=== PATIENT | male | born 1970 | race Caucasian/White ===

== ENCOUNTER 2018-02-26 00:30 | Inpatient (IN) | payer OTHER ==
--- NOTE | 2018-02-26 00:47 | ED ---
Back Pain - HPI Summary HPI Summary: This patient is a 47 year old M brought in by EMS presenting to [facility] with a chief complaint of worsening back, leg, and groin pain since [place]. Patient is scheduled for surgery with Dr. Slater but states he is in severe pain. The patient has a Hx of back surgery when he fell of a roof 3-5 years ago. He is getting the future surgery for herniated discs L2, L3, L4, and L5. The patient complains of associated dysuria and constipation. - History of Current Complaint Stated Complaint: BACK PAIN Hx Obtained From: Patient Onset/Duration: Gradual Onset, Lasting Weeks, Still Present Onset/Duration: Started Weeks Ago Timing: Constant Back Pain Location: Is Discrete @ - Vertebrae L2, L3, L4, L5, Radiates To - Groin and left leg. Severity Initially: Severe Severity Currently: Severe Aggravating Symptom(s): Nothing Alleviating Symptom(s): Nothing - Allergies/Home Medications Allergies/Adverse Reactions: Allergies Allergy/AdvReac Type Severity Reaction Status Date / Time No Known Allergies Allergy Verified 02/20/18 10:11 PMH/Surg Hx/FS Hx/Imm Hx Endocrine/Hematology History: Denies: Hx Anticoagulant Therapy, Hx Blood Disorders, Hx Diabetes, Hx Unexplained Bleeding Cardiovascular History: Denies: Hx Congestive Heart Failure, Hx Hypertension - patient stated BP elevated d/t excruciating pain in back and leg, Hx Pacemaker/ICD GI History: Reports: Hx Jaundice - hx, Other GI Disorders - hepatomegaly, LFT's elevated History: Denies: Hx Renal Disease Musculoskeletal History: Reports: Hx Arthritis, Hx Back Problems - h/o lumbar laminectomy - ongoing pain w/ LLE radiculopathy Sensory History: Reports: Hx Contacts or Glasses - READING Denies: Hx Hearing Aid Opthamlomology History: Reports: Hx Contacts or Glasses - READING Psychiatric History: Reports: Hx Inpatient Treatment - drug and alcohol rehab, Hx Substance Abuse - daily ETOH consumption 4+ beers per day Denies: Hx Anxiety, Hx Attention Deficit Hyperactivity Disorder, Hx Eating Disorder, Hx Depression, Hx Panic Disorder, Hx Post Traumatic Stress Disorder, Hx Community Mental Health Tx, Hx Schizophrenia, Hx Bipolar Disorder, Hx Suicide Attempt, Hx of Violent Episodes Against Others, Other Psychiatric Issues /Disorders - Surgical History Surgery Procedure, Year, and Place: Lt KNEE, RT KNEE- ACL REPAIR. BACK SURGERY - LUMBAR Hx Anesthesia Reactions: No - Family History Known Family History: Negative: Cardiac Disease, Hypertension, Diabetes - Social History Alcohol Use: Daily Alcohol Amount: Patient states it depends (reports 4-10 in past) Hx Substance Use: No Substance Use Type: Reports: None Hx Tobacco Use: Yes Smoking Status (MU): Current Every Day Smoker Type: Cigarettes Amount Used/How Often: 1 ppd 30 years Length of Time of Smoking/Using Tobacco: most of life Have You Smoked in the Last Year: No Review of Systems Negative: Fever Positive: dysuria, other - constipation Positive: Other - Back pain in L2, L3, L4, L5, radiates to groin and left leg. All Other Systems Reviewed And Are Negative: Yes Physical Exam - Summary Physical Exam Summary: Appearance: Well-appearing, Well-nourished, lying in bed comfortable. Good sensation in the feet, symmetric. Eyes: sclera anicteric, no conjunctival pallor ENT: mucous membranes moist Neck: deferred Respiratory: No signs of respiratory distress Cardiovascular: Appears well perfused, pulses are nml Abdomen: deferred Musculoskeletal: Moving all 4 extremities without obvious discomfort. Good sensation in the feet, symmetric. Dorsi and plantar flexion in great toe is intact bilaterally. Neurological: Awake and alert, mentation is normal, speech is fluent and appropriate Psychiatric: affect is normal, does not appear anxious or depressed Triage Information Reviewed: Yes Vital Signs Reviewed: Yes Diagnostics - Laboratory Result Diagrams: 02/26/18 02:14 02/26/18 02:14 Lab Statement: Any lab studies that have been ordered have been reviewed, and results considered in the medical decision making process. Re-Evaluation - Re-Evaluation First Eval Re-Evaluation Time: 00:53 Change: Unchanged - Discussed pain treatment plan with patient. Back Pain Course/Dx - Course Course Of Treatment: This patient is a 47 year old M brought in by EMS presenting to [facility] with a chief complaint of worsening back, leg, and groin pain since [place]. The provider ordered morphine to be administered to relieve the pain. Dr. Hernandez, Hospitalist, was consulted and he came to see the patient in the ED and recommended admission to [facility]. This plan was discussed with the patient and he was agreeable with this plan. - Diagnoses Provider Diagnoses: Intractable low back pain, Radiculopathy, lumbar region - Provider Notifications Discussed Care Of Patient With: Stuart Hernandez Time Discussed With Above Provider: 01:32 Instructed by Provider To: MD Will See In ED Discharge - Sign-Out/Discharge Documenting (check all that apply): Patient Departure - Admit - Discharge Plan Condition: Stable Disposition: ADMITTED TO [facility] - Billing Disposition and Condition Condition: STABLE Disposition: Admitted to [facility] - Attestation Statements Document Initiated by Scribe: Yes Documenting Scribe: Yousuf Stephens Provider For Whom Gregory is Documenting (Include Credential): Juancarlos Asif MD Scribe Attestation: Yousuf Srivastava, scribed for Juancarlos Asif MD on 02/26/18 at 0608. Scribe Documentation Reviewed: Yes Provider Attestation: The documentation as recorded by the Yousuf simon accurately reflects the service I personally performed and the decisions made by me, Juancarlos Asif MD
[2018-02-26] MEDS ORDERED: LORazepam TAB(*) 1 MG PO ONE (00:52)
[2018-02-26] MEDS ORDERED: Morphine VIAL* 4 MG/ML VIAL (1 ml vial) IV ONE ×2 (00:52→02:04)
[2018-02-26] MEDS ORDERED: NS 0.9% 1000 ML* 1,000 ML IV ONE (00:52)
[2018-02-26 02:28] LABS: ABS Basophils 0 10^3/ul (0-0.2); ABS Eosinophils 0 10^3/ul (0-0.6); ABS Lymphocytes 1.2 10^3/ul (1.0-4.8); ABS Monocytes 1.1 10^3/ul (0-0.8); ABS Neutrophils 5.3 10^3/ul (1.5-7.7); ABS Nucleated RBC 0 10^3/ul; Eosinophil % 0.2 % (0-6); Hematocrit 42 % (42-52); Hemoglobin 14.4 g/dl (14.0-18.0); Lymphocyte % 15.6 % (25-47); Mean Corpuscular HGB Conc 35 g/dl (31-36); Mean Corpuscular Hemoglobin 32 pg (27-31); Mean Corpuscular Volume 93 fL (80-94); Mean Platelet Volume 8.6 fL (7.4-10.4); Nucleated Red Blood Cells % 0.1; Platelet Count 200 10^3/ul (150-450); Red Blood Count 4.51 10^6/ul (4.00-5.40); Red Cell Distribution Width 12 % (10.5-15); White Blood Count 7.7 10^3/ul (3.5-10.8)
[2018-02-26 02:35] LABS: Activated Partial Thrombo Time 27.2 seconds (26.0-36.3); INR 1.01 (0.77-1.02)
[2018-02-26 02:40] LABS: Anion Gap 10 mmol/L (2-11); BUN/Creatinine Ratio 17.7 (8-20); Blood Urea Nitrogen 11 mg/dL (6-24); CO2 Carbon Dioxide 22 mmol/L (22-32); Calcium 8.8 mg/dL (8.6-10.3); Chloride 92 mmol/L (101-111); EGFR Non-African American 137.9 (>60); Glucose 112 mg/dL (70-100); Magnesium 1.7 mg/dL (1.9-2.7); Potassium 3.5 mmol/L (3.5-5.0); Sodium 124 mmol/L (135-145)
[2018-02-26] MEDS ORDERED: Ondansetron INJ* 2 MG/ML VIAL IV PRN (02:46)
[2018-02-26] MEDS: fentaNYL PATCH 25 MCG/HR TRANSDERM SCH (03:39)
[2018-02-26] MEDS: HYDROmorphone INJ1* 1 MG/ML SYRINGE IV SLOW PU PRN ×5 (03:43→20:51)
[2018-02-26] MEDS: Magnesium Oxide TAB* 400 MG PO SCH ×3 (03:44→10:25)
[2018-02-26] MEDS: Acetaminophen TAB* 325 MG PO PRN ×4 (04:39→19:34)
[2018-02-26] MEDS: Docusate CAP* 100 MG PO PRN ×2 (04:40→08:03)
[2018-02-26] MEDS: fentaNYL Patch Check Q Shift 1 NOTE SCH ×2 (06:47→19:06)
[2018-02-26] MEDS: Thiamine TAB* 100 MG TAB PO SCH (08:03)
[2018-02-26] MEDS: Multivitamins/Minerals TAB PO SCH (08:03)
[2018-02-26] MEDS: Methocarbamol TAB* 500 MG PO SCH ×2 (08:03→20:51)
[2018-02-26] MEDS: Folic Acid TAB* 1 MG PO SCH (08:03)
[2018-02-26] MEDS: Nicotine PATCH 21 MG/24 HR* PATCH TRANSDERM SCH (08:10)
[2018-02-26] MEDS ORDERED: amLODIPine TAB* 5 MG PO SCH (09:00)
[2018-02-26 10:30] LABS: BUN/Creatinine Ratio 18.6 (8-20); Calcium 9.3 mg/dL (8.6-10.3); Potassium 3.8 mmol/L (3.5-5.0)
--- NOTE | 2018-02-26 11:06 | PN ---
Subjective Date of Service: 02/26/18 Interval History: patient reports he continues to have severe back pain radiating down his legs. He reports pain into his groin. Denies numbness, no loss of bowel or bladder. Pt denies ever having dysuria. No BM in 3 days. Denies abdominal pain/nausea. He reports decreased appetite due to pain. Denies fever or chills. No SOB/CP He reports he has not been drinking a lot of alcohol the last week due to his pain and "not being able to get to the fridge". He also reports not a lot of fluid intake due to decreased mobility. Objective Active Medications: Acetaminophen (Tylenol Tab*) 650 mg PO Q4H PRN PRN Reason: FEVER/HEADACHE Last Admin: 02/26/18 10:27 Dose: 650 mg Amlodipine Besylate (Norvasc Tab*) 5 mg PO DAILY [facility] Last Admin: 02/26/18 08:03 Dose: 5 mg Docusate Sodium (Colace Cap*) 100 mg PO BID PRN PRN Reason: CONSTIPATION Last Admin: 02/26/18 08:03 Dose: 100 mg Fentanyl (Duragesic Patch 25 Mcg/Hr*) 25 mcg TRANSDERM Q72H [facility] Last Admin: 02/26/18 03:39 Dose: 25 mcg Folic Acid (Folvite Tab*) 1 mg PO DAILY [facility] Last Admin: 02/26/18 08:03 Dose: 1 mg Hydromorphone HCl (Dilaudid Inj1s*) 1 mg IV SLOW PU Q4H PRN PRN Reason: PAIN Last Admin: 02/26/18 08:02 Dose: 1 mg Sodium Chloride (Ns 0.9% 1000 Ml*) 1,000 mls @ 100 mls/hr IV PER RATE [facility] Magnesium Oxide (Magox 400 Tab*) 400 mg PO DAILY [facility] Last Admin: 02/26/18 10:25 Dose: 400 mg Methocarbamol (Robaxin Tab*) 500 mg PO BID [facility] Last Admin: 02/26/18 08:03 Dose: 500 mg Multivitamins/Minerals (Theragran/Minerals Tab*) 1 tab PO QAM [facility] Last Admin: 02/26/18 08:03 Dose: 1 tab Nicotine (Nicotine Patch 21 Mg/24 Hr*) 1 patch TRANSDERM DAILY@0800 [facility] Last Admin: 02/26/18 08:10 Dose: 1 patch Ondansetron HCl (Zofran Inj*) 4 mg IV Q6H PRN PRN Reason: NAUSEA Pharmacy Profile Note (Fentanyl Patch Check Q Shift) 1 note N/A 0700,1900 [facility] Last Admin: 02/26/18 06:47 Dose: 1 note Pharmacy Profile Note (Nicotine Patch Removal Note*) 1 note FOLLOW UP 2099 [facility] Pregabalin (Lyrica Cap(*)) 50 mg PO TID [facility] Thiamine HCl (Vitamin B-1 Tab*) 100 mg PO DAILY [facility] Last Admin: 02/26/18 08:03 Dose: 100 mg Vital Signs - 8 hr 02/26/18 02/26/18 02/26/18 03:10 03:13 03:39 Temperature 98.6 F Pulse Rate 98 98 Respiratory 14 16 18 Rate Blood Pressure 155/102 155/100 (mmHg) O2 Sat by Pulse 95 97 Oximetry 02/26/18 02/26/18 02/26/18 03:41 03:43 04:04 Temperature 98.1 F Pulse Rate 108 Respiratory 18 18 18 Rate Blood Pressure 176/96 (mmHg) O2 Sat by Pulse 99 Oximetry 02/26/18 02/26/18 02/26/18 06:05 07:27 08:02 Temperature 98.0 F Pulse Rate 97 Respiratory 16 18 18 Rate Blood Pressure 139/96 (mmHg) O2 Sat by Pulse 96 Oximetry 02/26/18 02/26/18 08:03 10:28 Temperature Pulse Rate Respiratory 18 18 Rate Blood Pressure (mmHg) O2 Sat by Pulse Oximetry Oxygen Devices in Use Now: None Appearance: 47 yo male laying in bed resting in nAD, A+O x3 Eyes: No Scleral Icterus, PERRLA Ears/Nose/Mouth/Throat: NL Teeth, Lips, Gums, Mucous Membranes Moist Neck: NL Appearance and Movements; NL JVP Respiratory: Symmetrical Chest Expansion and Respiratory Effort, Clear to Auscultation Cardiovascular: NL Sounds; No Murmurs; No JVD, RRR, No Edema Abdominal: NL Sounds; No Tenderness; No Distention Lymphatic: No Cervical Adenopathy Extremities: No Edema, No Clubbing, Cyanosis Skin: No Rash or Ulcers, No Nodules or Sclerosis Neurological: Alert and Oriented x 3, NL Sensation, NL Gait, NL Muscle Strength and Tone, - Lines/Tubes/Other Access: Clean, Dry and Intact Peripheral IV Nutrition: Taking PO's Result Diagrams: 02/26/18 02:14 02/26/18 10:02 Assess/Plan/Problems-Billing Assessment: 47 yo male with PMH of HTN, chronic back pain with hx of lumbar lami in 2014 who was currently scheduled for back surgery on Wednesday with Dr. Slater who presented to the ER with c/o of worsening back, leg and groin pain also c/o dysuria and constipation. Also has PMH of alcohol and tobacco abuse. - Patient Problems (1) Intractable low back pain Comment: - Pt previously scheduled for surgery with Dr. Slater on WednesdayMar 01. - No bladder or bowel dysfunction per patient report. - started on Fentanyl patch on admission, continue dilaudid prn, and home robaxin - bowel regimen - PT/OT eval (2) Hyponatremia Comment: - suspect multi-factorial with dehydration, HCTZ, alcohol use - Start NS @ 100 ml/hr repeat BMP this afternoon - send urine lytes (3) Alcohol abuse Comment: - No detox symptoms - reports he has cut back the last week - will continue to monitor - continue thiamine, MVI - Patient has low motivation for cessation (4) Hypertension Comment: stable - Continue amlodipine - DC HCTZ possible cause of hyponatremia (5) Patient is full code (6) DVT prophylaxis Comment: - HSQ- will hold dose after midnight for surgery in the AM
[2018-02-26] MEDS: NS 0.9% 1000 ML* 1,000 ML IV SCH ×2 (11:36→22:03)
[2018-02-26 12:44] LABS: Alcohol < 10 mg/dL (<10)
[2018-02-26] MEDS: Pregabalin CAP(*) 50 MG PO SCH ×2 (14:04→20:55)
[2018-02-26 14:22] LABS: Urine Appearance Cloudy; Urine Bilirubin Negative (Negative); Urine Blood Negative (Negative); Urine Color Yellow; Urine Glucose Negative (Negative); Urine Ketones Negative (Negative); Urine Nitrite Negative (Negative); Urine Protein Negative (Negative); Urine Specific Gravity 1.005 (1.010-1.030); Urine Urobilinogen Negative (Negative)
[2018-02-26 14:31] LABS: Barbiturates Urine Screen None Detected (None Detect); Benzodiazepine Urine Screen None Detected (None Detect); Urine Cannabinoids Screen None Detected (None Detect)
[2018-02-26] MEDS: Heparin VIAL(*) 5000 UNITS/ML VIAL (FIVE THOUSAND) SUBCUT SCH ×2 (15:12→22:02)
[2018-02-26 15:29] LABS: BUN/Creatinine Ratio 16.7 (8-20); Potassium 3.8 mmol/L (3.5-5.0)
[2018-02-26 17:08] LABS: Urine Creatinine Concentration 40.65 mg/dL; Urine Sodium Concentration < 18 mmol/L
[2018-02-26 20:17] LABS: BUN/Creatinine Ratio 22.2 (8-20); EGFR Non-African American 135.4 (>60); Potassium 3.8 mmol/L (3.5-5.0)
--- NOTE | 2018-02-26 20:36 | HP ---
CC: Dr. Luque; Dr. Slater ADMISSION HISTORY AND PHYSICAL: DATE OF ADMISSION: 02/26/18 CHIEF COMPLAINT: Left sciatica. HISTORY OF PRESENT ILLNESS: Mr. Huff is a 47-year-old man with a history of lumbar disk disease with chronic pain, who comes to emergency department this evening with severe and worsening left-sided sciatica, which he rates at 10/10 pain. The pain is intermittent and when he is clearly still, he can get it down to 6/10. The pain radiates to his left hip, groin, and leg. He cannot walk with his walker at home. He is having no new bowel or bladder issues, although he says his bladder has some dysfunction and he is slow to void. He has not moved his bowels in 3 days. The patient was admitted to this hospital on 02/20/13 with intractable back pain. He also had an MRI of his spine on 03/29. He has seen Dr. Slater and there is a plan for lumbar disk surgery and laminectomy in L2 through L5 to occur on 03/01/18. The patient left on with understanding that he would wait at home for the surgery, but he could not manage ambulation or anything at home, so he came back to the hospital today. The patient does report a history of alcohol abuse, but also reports he has been drinking 0 to 2 beers per day in the last 2 weeks. PAST MEDICAL HISTORY: Includes hypertension, lumbar disk disease as above. PAST SURGICAL HISTORY: He did have a laminectomy on the lumbar area in 2014. MEDICATIONS: On admission are: 1. Multivitamin 1 tab daily. 2. Oxycodone with acetaminophen 10/325 one tab p.o. q.6 hours p.r.n. 3. Acetaminophen as needed. 4. Amlodipine 5 mg p.o. daily. 5. Folic acid 1 mg p.o. daily. 6. Hydrochlorothiazide 12.5 mg p.o. daily. 7. Methocarbamol 500 mg p.o. b.i.d. p.r.n. spasm. 8. Thiamine 1 tab p.o. daily. ALLERGIES: None. FAMILY HISTORY: His brother has drug abuse problems, but he was estranged from his parents, does not know the history. SOCIAL HISTORY: He is disabled. He is . He has 2 children. His daughter is home from college and taking care of him at the moment. He smokes a pack a day of cigarettes, alcohol about 1 to 2 beers per day. No recreational drugs. REVIEW OF SYSTEMS: The patient denies any fevers, weight loss, anorexia. The patient denies any chest pain or palpitations. He denies any cough, hemoptysis , or shortness of breath. The patient denies any nausea, vomiting. He does report some urinary hesitancy, but denies any dysuria or hematuria. He does state his left leg gets weak. Remainder of a 14-point review of systems is negative other than mentioned in the HPI. PHYSICAL EXAMINATION GENERAL: He is alert, in no acute distress. VITAL SIGNS: Temperature is 37.0, pulse 109, respirations 12 to 30, blood pressure is 161/108, O2 sats 94%. HEENT: Head is normocephalic, atraumatic. Sclerae anicteric. Pupils equal, round, and reactive to light and accommodation. Oropharynx is moist. No lesions. NECK: No JVD. No carotid bruit. No thyromegaly. LUNGS: Clear to auscultation and percussion bilaterally. HEART: Tachycardic. Regular. No murmurs. ABDOMEN: Soft, nontender. Positive bowel sounds. No hepatosplenomegaly. EXTREMITIES: No peripheral edema. Dorsalis pedis pulses 1+ bilaterally. NEUROLOGIC: Cranial nerves II through XII are intact. Motor strength is 5/5 in upper extremity. Motor strength is 4+/5, left lower extremity and hip flexion. Reflexes absent on the left. Patellar 2+ on the right. He is alert and oriented x3 DIAGNOSTIC STUDIES/LAB DATA: Sodium 124, potassium 3.5, chloride 92, bicarb 22 , BUN 11, creatinine 0.62, glucose 102, magnesium 1.7. White count 7.7, hemoglobin 14.4, hematocrit 42%, platelets of 200. No new imaging is obtained. ASSESSMENT AND PLAN: 1. A 47-year-old man with intractable left-sided sciatica. The plan will be admission to the hospital for pain control and some physical therapy to help him the best chance to move around little while he is waiting for surgery. We will talk to Dr. Slater and he can still go to the operating room on 03/01/18. We will attain pain control with continued oxycodone and IV Dilaudid as well as fentanyl patch. He also might benefit from the addition of Lyrica, which can help with his neuropathic pain. 2. For his constipation, he will be given a bowel regimen to counteract the opioid- induced constipation. 3. For nicotine dependency, he agrees to have a nicotine patch. 4. For his hyponatremia, this is likely due to his diabetic pill, we will stop his hydrochlorothiazide, continue his other blood pressure pills. Recheck electrolytes in the morning. 5. Code status is full. 6. DVT prophylaxis can be with compression stockings and ambulation. [id number]/[facility] #: [id number] NATI
[2018-02-26] MEDS: Nicotine Patch Removal NOTE FOLLOW UP SCH (21:00)
[2018-02-27] MEDS: Acetaminophen TAB* 325 MG PO PRN ×3 (00:10→17:32)
[2018-02-27] MEDS: HYDROmorphone INJ1* 1 MG/ML SYRINGE IV SLOW PU PRN ×6 (02:00→23:25)
[2018-02-27] MEDS: Heparin VIAL(*) 5000 UNITS/ML VIAL (FIVE THOUSAND) SUBCUT SCH ×3 (06:13→21:23)
[2018-02-27 06:34] LABS: ABS Basophils 0.1 10^3/ul (0-0.2); ABS Eosinophils 0 10^3/ul (0-0.6); ABS Neutrophils 3.7 10^3/ul (1.5-7.7); ABS Nucleated RBC 0 10^3/ul; Eosinophil % 0.6 % (0-6); Hematocrit 39 % (42-52); Hemoglobin 13.5 g/dl (14.0-18.0); Lymphocyte % 29.9 % (25-47); Mean Corpuscular HGB Conc 35 g/dl (31-36); Mean Corpuscular Hemoglobin 32 pg (27-31); Mean Corpuscular Volume 94 fL (80-94); Mean Platelet Volume 8.5 fL (7.4-10.4); Nucleated Red Blood Cells % 0.1; Platelet Count 202 10^3/ul (150-450); Red Blood Count 4.16 10^6/ul (4.00-5.40); Red Cell Distribution Width 12 % (10.5-15); White Blood Count 6.8 10^3/ul (3.5-10.8)
[2018-02-27 06:51] LABS: BUN/Creatinine Ratio 17.5 (8-20); Calcium 8.9 mg/dL (8.6-10.3); EGFR Non-African American 151.9 (>60); Potassium 4.1 mmol/L (3.5-5.0)
[2018-02-27] MEDS: fentaNYL Patch Check Q Shift 1 NOTE SCH ×2 (07:06→18:50)
[2018-02-27] MEDS: Nicotine PATCH 21 MG/24 HR* PATCH TRANSDERM SCH (08:17)
[2018-02-27] MEDS: amLODIPine TAB* 5 MG PO SCH (08:18)
[2018-02-27] MEDS: Pregabalin CAP(*) 50 MG PO SCH ×3 (08:18→21:22)
[2018-02-27] MEDS: Folic Acid TAB* 1 MG PO SCH (08:18)
[2018-02-27] MEDS: Multivitamins/Minerals TAB PO SCH (08:18)
[2018-02-27] MEDS: Thiamine TAB* 100 MG TAB PO SCH (08:18)
[2018-02-27] MEDS: Methocarbamol TAB* 500 MG PO SCH ×2 (08:18→21:22)
[2018-02-27] MEDS: Magnesium Oxide TAB* 400 MG PO SCH (08:18)
[2018-02-27] MEDS: Magnesium Hydroxide LIQ* 30 ML UDC PO PRN ×2 (11:25→21:22)
--- NOTE | 2018-02-27 11:56 | PN ---
Subjective Date of Service: 02/27/18 Interval History: Patient reports he is "feeling okay" still reporting limited ROM and significant low back pain. He reports he feels that the pain regimen is controlling his pain. He denies any worsening pain. No numbness, tingling. No bowel or bladder loss. Denies fever or chills. Denies any tremors, hallucinations or feelings of detox. Reports his appetite is better now that the pain is controlled. Objective Active Medications: Acetaminophen (Tylenol Tab*) 650 mg PO Q4H PRN PRN Reason: FEVER/HEADACHE Last Admin: 02/27/18 08:22 Dose: 650 mg Amlodipine Besylate (Norvasc Tab*) 10 mg PO DAILY [facility] Last Admin: 02/27/18 08:18 Dose: 10 mg Docusate Sodium (Colace Cap*) 100 mg PO BID PRN PRN Reason: CONSTIPATION Last Admin: 02/26/18 08:03 Dose: 100 mg Fentanyl (Duragesic Patch 25 Mcg/Hr*) 25 mcg TRANSDERM Q72H [facility] Last Admin: 02/26/18 03:39 Dose: 25 mcg Folic Acid (Folvite Tab*) 1 mg PO DAILY [facility] Last Admin: 02/27/18 08:18 Dose: 1 mg Heparin Sodium (Porcine) (Heparin Vial(*)) 5,000 units SUBCUT Q8HR [facility] Stop: 02/28/18 23:00 Last Admin: 02/27/18 06:13 Dose: 5,000 units Hydromorphone HCl (Dilaudid Inj1s*) 1 mg IV SLOW PU Q4H PRN PRN Reason: PAIN Last Admin: 02/27/18 10:17 Dose: 1 mg Sodium Chloride (Ns 0.9% 1000 Ml*) 1,000 mls @ 100 mls/hr IV PER RATE [facility] Last Admin: 02/26/18 22:03 Dose: 100 mls/hr Magnesium Hydroxide (Milk Of Magnesia Liq*) 30 ml PO Q6H PRN PRN Reason: CONSTIPATION Last Admin: 02/27/18 11:25 Dose: 30 ml Magnesium Oxide (Magox 400 Tab*) 400 mg PO DAILY [facility] Last Admin: 02/27/18 08:18 Dose: 400 mg Methocarbamol (Robaxin Tab*) 500 mg PO BID [facility] Last Admin: 02/27/18 08:18 Dose: 500 mg Multivitamins/Minerals (Theragran/Minerals Tab*) 1 tab PO QAM [facility] Last Admin: 02/27/18 08:18 Dose: 1 tab Nicotine (Nicotine Patch 21 Mg/24 Hr*) 1 patch TRANSDERM DAILY@0800 [facility] Last Admin: 02/27/18 08:17 Dose: 1 patch Ondansetron HCl (Zofran Inj*) 4 mg IV Q6H PRN PRN Reason: NAUSEA Pharmacy Profile Note (Fentanyl Patch Check Q Shift) 1 note N/A 0700,1900 [facility] Last Admin: 02/27/18 07:06 Dose: 1 note Pharmacy Profile Note (Nicotine Patch Removal Note*) 1 note FOLLOW UP 2100 [facility] Last Admin: 02/26/18 21:00 Dose: 1 note Pregabalin (Lyrica Cap(*)) 50 mg PO TID [facility] Last Admin: 02/27/18 08:18 Dose: 50 mg Thiamine HCl (Vitamin B-1 Tab*) 100 mg PO DAILY [facility] Last Admin: 02/27/18 08:18 Dose: 100 mg Vital Signs - 8 hr 02/27/18 02/27/18 02/27/18 04:11 06:13 07:31 Temperature 98.0 F 97.4 F Pulse Rate 68 66 Respiratory 16 18 17 Rate Blood Pressure 138/67 134/84 (mmHg) O2 Sat by Pulse 96 99 Oximetry 02/27/18 02/27/18 02/27/18 08:00 08:06 08:18 Temperature Pulse Rate Respiratory 18 18 22 Rate Blood Pressure (mmHg) O2 Sat by Pulse Oximetry 02/27/18 02/27/18 02/27/18 10:17 11:16 11:17 Temperature Pulse Rate Respiratory 18 18 18 Rate Blood Pressure (mmHg) O2 Sat by Pulse Oximetry Oxygen Devices in Use Now: None Appearance: 47 yo male A+O x3 laying in bed appears comfortable. Eyes: PERRLA Ears/Nose/Mouth/Throat: Mucous Membranes Moist Respiratory: Symmetrical Chest Expansion and Respiratory Effort, Clear to Auscultation Cardiovascular: NL Sounds; No Murmurs; No JVD, RRR, No Edema Abdominal: NL Sounds; No Tenderness; No Distention Extremities: No Edema, No Clubbing, Cyanosis Skin: No Rash or Ulcers, No Nodules or Sclerosis Neurological: Alert and Oriented x 3, NL Sensation, NL Muscle Strength and Tone , - - + DP pulses Lines/Tubes/Other Access: Clean, Dry and Intact Peripheral IV Nutrition: Taking PO's Result Diagrams: 02/27/18 06:06 02/27/18 06:06 Assess/Plan/Problems-Billing Assessment: 47 yo male with PMH of HTN, chronic back pain with hx of lumbar lami in 2014 who was currently scheduled for back surgery on Wednesday with Dr. Slater who presented to the ER with c/o of worsening back, leg and groin pain also c/o dysuria and constipation. Also has PMH of alcohol and tobacco abuse. - Patient Problems (1) Intractable low back pain Comment: - Pt previously scheduled for surgery with Dr. Slater on WednesdayMar 01 - plan for surgical intervention at that time. - No bladder or bowel dysfunction per patient report. - started on Fentanyl patch on admission, continue dilaudid prn, and home robaxin - patient reports regimen is working w/o side effects of drowsiness - bowel regimen - PT/OT eval (2) Hyponatremia Comment: - improving with IVFs - suspect multi-factorial with dehydration, HCTZ, alcohol use - Start NS @ 100 ml/hr repeat BMP this afternoon (3) Alcohol abuse Comment: - No detox symptoms - reports he has cut back the last week - will continue to monitor - continue thiamine, MVI - Patient has low motivation for cessation (4) Hypertension Comment: stable - Continue amlodipine - DC HCTZ possible cause of hyponatremia (5) Patient is full code (6) DVT prophylaxis Comment: - HSQ- will hold dose after midnight for surgery in the AM of 03/01 Status and Disposition: inpatient for plan for surgery with Dr. slater on 03/01
[2018-02-27] MEDS: Nicotine Patch Removal NOTE FOLLOW UP SCH (21:23)
[2018-02-28] MEDS: HYDROmorphone INJ1* 1 MG/ML SYRINGE IV SLOW PU PRN ×5 (04:13→22:46)
[2018-02-28 05:34] LABS: ABS Basophils 0.1 10^3/ul (0-0.2); ABS Eosinophils 0.1 10^3/ul (0-0.6); ABS Lymphocytes 1.5 10^3/ul (1.0-4.8); ABS Monocytes 0.9 10^3/ul (0-0.8); ABS Neutrophils 3.8 10^3/ul (1.5-7.7); ABS Nucleated RBC 0 10^3/ul; Hematocrit 40 % (42-52); Hemoglobin 13.5 g/dl (14.0-18.0); Lymphocyte % 23.2 % (25-47); Mean Corpuscular HGB Conc 34 g/dl (31-36); Mean Corpuscular Hemoglobin 32 pg (27-31); Mean Corpuscular Volume 94 fL (80-94); Mean Platelet Volume 8.1 fL (7.4-10.4); Nucleated Red Blood Cells % 0; Platelet Count 242 10^3/ul (150-450); Red Blood Count 4.23 10^6/ul (4.00-5.40); Red Cell Distribution Width 12 % (10.5-15); White Blood Count 6.3 10^3/ul (3.5-10.8)
[2018-02-28 05:46] LABS: BUN/Creatinine Ratio 14.3 (8-20); Calcium 9.1 mg/dL (8.6-10.3); EGFR Non-African American 155.1 (>60)
[2018-02-28] MEDS: Heparin VIAL(*) 5000 UNITS/ML VIAL (FIVE THOUSAND) SUBCUT SCH ×3 (05:55→22:45)
[2018-02-28] MEDS: Acetaminophen TAB* 325 MG PO PRN (06:48)
[2018-02-28] MEDS: fentaNYL Patch Check Q Shift 1 NOTE SCH ×2 (07:12→19:15)
[2018-02-28] MEDS: Multivitamins/Minerals TAB PO SCH (09:27)
[2018-02-28] MEDS: Magnesium Oxide TAB* 400 MG PO SCH (09:27)
[2018-02-28] MEDS: amLODIPine TAB* 5 MG PO SCH (09:27)
[2018-02-28] MEDS: Thiamine TAB* 100 MG TAB PO SCH (09:28)
[2018-02-28] MEDS: Pregabalin CAP(*) 50 MG PO SCH ×3 (09:28→20:15)
[2018-02-28] MEDS: Folic Acid TAB* 1 MG PO SCH (09:28)
[2018-02-28] MEDS: Nicotine PATCH 21 MG/24 HR* PATCH TRANSDERM SCH (09:28)
[2018-02-28] MEDS: Methocarbamol TAB* 500 MG PO SCH ×2 (09:28→20:15)
--- NOTE | 2018-02-28 10:33 | PN ---
Subjective Date of Service: 02/28/18 Interval History: pt reports he slept overnight. pain is presented but states it is controlled on current regimen. reports he got OOB to bathroom today and had a BM. He states it was "extremely pain" moving out of the bed ambulating but was able to do it. He denies bowel or bladder loss. No numbness. Reports some tingling in toes when he has a "shooting pain down leg". No fevers or chills. Denies any withdrawal symptoms Objective Active Medications: Acetaminophen (Tylenol Tab*) 650 mg PO Q4H PRN PRN Reason: FEVER/HEADACHE Last Admin: 02/28/18 06:48 Dose: 650 mg Amlodipine Besylate (Norvasc Tab*) 10 mg PO DAILY [facility] Last Admin: 02/28/18 09:27 Dose: 10 mg Docusate Sodium (Colace Cap*) 100 mg PO BID PRN PRN Reason: CONSTIPATION Last Admin: 02/26/18 08:03 Dose: 100 mg Fentanyl (Duragesic Patch 25 Mcg/Hr*) 25 mcg TRANSDERM Q72H [facility] Last Admin: 02/26/18 03:39 Dose: 25 mcg Folic Acid (Folvite Tab*) 1 mg PO DAILY [facility] Last Admin: 02/28/18 09:28 Dose: 1 mg Heparin Sodium (Porcine) (Heparin Vial(*)) 5,000 units SUBCUT Q8HR [facility] Stop: 02/28/18 23:00 Last Admin: 02/28/18 05:55 Dose: 5,000 units Hydromorphone HCl (Dilaudid Inj1s*) 1 mg IV SLOW PU Q4H PRN PRN Reason: PAIN Last Admin: 02/28/18 09:28 Dose: 1 mg Magnesium Hydroxide (Milk Of Magnesia Liq*) 30 ml PO Q6H PRN PRN Reason: CONSTIPATION Last Admin: 02/27/18 21:22 Dose: 30 ml Magnesium Oxide (Magox 400 Tab*) 400 mg PO DAILY [facility] Last Admin: 02/28/18 09:27 Dose: 400 mg Methocarbamol (Robaxin Tab*) 500 mg PO BID [facility] Last Admin: 02/28/18 09:28 Dose: 500 mg Multivitamins/Minerals (Theragran/Minerals Tab*) 1 tab PO QAM [facility] Last Admin: 02/28/18 09:27 Dose: 1 tab Nicotine (Nicotine Patch 21 Mg/24 Hr*) 1 patch TRANSDERM DAILY@0800 [facility] Last Admin: 02/28/18 09:28 Dose: 1 patch Ondansetron HCl (Zofran Inj*) 4 mg IV Q6H PRN PRN Reason: NAUSEA Pharmacy Profile Note (Fentanyl Patch Check Q Shift) 1 note N/A 0700,1900 [facility] Last Admin: 02/28/18 07:12 Dose: 1 note Pharmacy Profile Note (Nicotine Patch Removal Note*) 1 note FOLLOW UP 2100 [facility] Last Admin: 02/27/18 21:23 Dose: 1 note Pregabalin (Lyrica Cap(*)) 50 mg PO TID [facility] Last Admin: 02/28/18 09:28 Dose: 50 mg Thiamine HCl (Vitamin B-1 Tab*) 100 mg PO DAILY [facility] Last Admin: 02/28/18 09:28 Dose: 100 mg Vital Signs - 8 hr 02/28/18 02/28/18 02/28/18 03:25 04:13 05:13 Temperature 97.6 F Pulse Rate 72 Respiratory 16 18 20 Rate Blood Pressure 144/97 (mmHg) O2 Sat by Pulse 98 Oximetry 02/28/18 02/28/18 02/28/18 07:18 08:00 09:28 Temperature 98.5 F Pulse Rate 76 Respiratory 16 16 16 Rate Blood Pressure 126/77 (mmHg) O2 Sat by Pulse 98 Oximetry Oxygen Devices in Use Now: None Eyes: No Scleral Icterus, PERRLA Ears/Nose/Mouth/Throat: Mucous Membranes Moist Respiratory: Symmetrical Chest Expansion and Respiratory Effort, Clear to Auscultation Cardiovascular: NL Sounds; No Murmurs; No JVD, RRR, No Edema Abdominal: NL Sounds; No Tenderness; No Distention Extremities: No Edema, No Clubbing, Cyanosis Skin: No Rash or Ulcers, No Nodules or Sclerosis Neurological: Alert and Oriented x 3, NL Sensation, NL Muscle Strength and Tone Lines/Tubes/Other Access: Clean, Dry and Intact Peripheral IV Nutrition: Taking PO's Result Diagrams: 02/28/18 05:14 02/28/18 05:14 Assess/Plan/Problems-Billing Assessment: 47 yo male with PMH of HTN, chronic back pain with hx of lumbar lami in 2014 who was currently scheduled for back surgery on Wednesday with Dr. Slater who presented to the ER with c/o of worsening back, leg and groin pain also c/o dysuria and constipation. Also has PMH of alcohol and tobacco abuse. - Patient Problems (1) Intractable low back pain Comment: - Pt previously scheduled for surgery with Dr. Slater on WednesdayMar 01. Contacted Dr. Slater this morning - who was not aware he had been admitted. Will await further orders from NS team to determine if patient will go to surgery tomorrow. - No bladder or bowel dysfunction per patient report. - started on Fentanyl patch on admission, continue dilaudid prn, and home robaxin - patient reports regimen is working w/o side effects of drowsiness - bowel regimen - PT/OT eval (2) Hyponatremia Comment: - improving with IVFs - suspect multi-factorial with dehydration, HCTZ, alcohol use (3) Constipation Comment: - had BM this am. Continue bowel regimen/meds (4) Alcohol abuse Comment: - No detox symptoms - reports he has cut back the last week - will continue to monitor - continue thiamine, MVI - Patient has low motivation for cessation (5) Hypertension Comment: - Controlled - Continue amlodipine - DC HCTZ possible cause of hyponatremia (6) Patient is full code (7) DVT prophylaxis Comment: - HSQ- will hold dose after midnight for surgery in the AM of 03/01 Status and Disposition: inpatient Tentative plan for surgery with Dr. slater on 03/01.
[2018-02-28] MEDS ORDERED: Buffered Lidocaine 0.9% SYRIN* 5 ML/SYR SYRINGE INTRADERM ONE (13:28)
[2018-02-28] MEDS ORDERED: Sodium Citrate/Citric Acid* 15 ML UDC PO ONE (13:31)
[2018-02-28 14:04] LABS: Activated Partial Thrombo Time 29.7 seconds (26.0-36.3); INR 0.94 (0.77-1.02)
--- NOTE | 2018-02-28 14:17 | PN ---
Progress Note - Progress Note Date of Service: 02/28/18 SOAP: Subjective: []Patient apparently readmitted on Wednesday secondary to severe left radicular pain No RLE,bowel or bladder complaints Objective: []SLR positive on left Neuro intact except hip flexor weakness on LT Assessment: []Patient already sched for surg 03/01 Plan: []PLAN-Lumbar Discectomy L3-4 on Left 03/01
[2018-02-28] MEDS: Nicotine Patch Removal NOTE FOLLOW UP SCH (20:16)
[2018-03-01] MEDS: fentaNYL PATCH 25 MCG/HR TRANSDERM SCH (02:58)
[2018-03-01] MEDS: HYDROmorphone INJ1* 1 MG/ML SYRINGE IV SLOW PU PRN (04:04)
[2018-03-01 05:22] LABS: ABS Basophils 0.1 10^3/ul (0-0.2); ABS Eosinophils 0.1 10^3/ul (0-0.6); ABS Lymphocytes 1.5 10^3/ul (1.0-4.8); ABS Neutrophils 4.4 10^3/ul (1.5-7.7); ABS Nucleated RBC 0 10^3/ul; Eosinophil % 0.8 % (0-6); Hematocrit 38 % (42-52); Hemoglobin 12.8 g/dl (14.0-18.0); Lymphocyte % 21.8 % (25-47); Mean Corpuscular HGB Conc 34 g/dl (31-36); Mean Corpuscular Hemoglobin 32 pg (27-31); Mean Corpuscular Volume 94 fL (80-94); Mean Platelet Volume 8.2 fL (7.4-10.4); Nucleated Red Blood Cells % 0; Platelet Count 249 10^3/ul (150-450); Red Blood Count 4.01 10^6/ul (4.00-5.40); Red Cell Distribution Width 12 % (10.5-15)
[2018-03-01 05:44] LABS: BUN/Creatinine Ratio 14.8 (8-20); Calcium 9.2 mg/dL (8.6-10.3); EGFR Non-African American 161.7 (>60); Potassium 3.8 mmol/L (3.5-5.0)
[2018-03-01] MEDS ORDERED: Lactated Ringers 1000 ML Bag* 1,000 ML IV SCH (06:00)
[2018-03-01] MEDS: amLODIPine TAB* 5 MG PO SCH ×2 (06:48→10:01)
[2018-03-01] MEDS: Pregabalin CAP(*) 50 MG PO SCH ×4 (06:49→22:07)
[2018-03-01] MEDS: fentaNYL Patch Check Q Shift 1 NOTE SCH (06:50)
[2018-03-01] MEDS ORDERED: Sodium Citrate/Citric Acid* 15 ML UDC PO ONE (09:00)
[2018-03-01] MEDS ORDERED: Buffered Lidocaine 0.9% SYRIN* 5 ML/SYR SYRINGE INJ ONE (09:00)
[2018-03-01] MEDS ORDERED: ceFAZolin 2 GM PREMIX in ORs 2 GM/50 ML BAG IVPB ONE (09:37)
[2018-03-01] MEDS: Nicotine PATCH 21 MG/24 HR* PATCH TRANSDERM SCH (10:00)
[2018-03-01] MEDS: Folic Acid TAB* 1 MG PO SCH (10:06)
[2018-03-01] MEDS: Magnesium Oxide TAB* 400 MG PO SCH (10:06)
[2018-03-01] MEDS: Thiamine TAB* 100 MG TAB PO SCH (10:07)
[2018-03-01] MEDS: Methocarbamol TAB* 500 MG PO SCH ×2 (10:07→22:06)
[2018-03-01] MEDS: Multivitamins/Minerals TAB PO SCH (10:07)
[2018-03-01] MEDS ORDERED: fentaNYL* 50 MCG/ML 2 ML VIAL (100 MCG VIAL) IV PRN (11:14)
[2018-03-01] MEDS ORDERED: Naloxone* 0.4 MG/ML 1 ML VIAL IV PRN (11:14)
[2018-03-01] MEDS: HYDROcodone/ACETAMIN 5-325 MG* 1 TAB PO PRN ×3 (13:30→22:05)
--- NOTE | 2018-03-01 15:31 | PN ---
Subjective Date of Service: 03/01/18 Interval History: patient reports his pain is much better after surgery and is up walking around. He reports some soreness in surgical area but otherwise states he is feeling "great". NS ENVIRONMENTAL SCIENCE PROGRAM DIRECTOR in room - reports she just changed the dressing - there is some mild swelling noted on the left side of the incision that will require watching Objective Active Medications: Acetaminophen (Tylenol Tab*) 650 mg PO Q4H PRN PRN Reason: FEVER/HEADACHE Last Admin: 02/28/18 06:48 Dose: 650 mg Hydrocodone Bitart/Acetaminophen (Sellers 5-325 Tab*) 2 tab PO Q4H PRN PRN Reason: PAIN Last Admin: 03/01/18 13:30 Dose: 2 tab Amlodipine Besylate (Norvasc Tab*) 10 mg PO DAILY [facility] Last Admin: 03/01/18 10:01 Dose: Not Given Docusate Sodium (Colace Cap*) 100 mg PO BID PRN PRN Reason: CONSTIPATION Last Admin: 02/26/18 08:03 Dose: 100 mg Folic Acid (Folvite Tab*) 1 mg PO DAILY [facility] Last Admin: 03/01/18 10:06 Dose: Not Given Lactated Ringer's (Lactated Ringers 1000 Ml Bag*) 1,000 mls @ 125 mls/hr IV PER RATE [facility] Magnesium Hydroxide (Milk Of Magnesia Liq*) 30 ml PO Q6H PRN PRN Reason: CONSTIPATION Last Admin: 02/27/18 21:22 Dose: 30 ml Magnesium Oxide (Magox 400 Tab*) 400 mg PO DAILY [facility] Last Admin: 03/01/18 10:06 Dose: Not Given Methocarbamol (Robaxin Tab*) 500 mg PO BID [facility] Last Admin: 03/01/18 10:07 Dose: Not Given Multivitamins/Minerals (Theragran/Minerals Tab*) 1 tab PO QAM [facility] Last Admin: 03/01/18 10:07 Dose: Not Given Nicotine (Nicotine Patch 21 Mg/24 Hr*) 1 patch TRANSDERM DAILY@0800 [facility] Last Admin: 03/01/18 10:00 Dose: Not Given Ondansetron HCl (Zofran Inj*) 4 mg IV Q6H PRN PRN Reason: NAUSEA Pharmacy Profile Note (Nicotine Patch Removal Note*) 1 note FOLLOW UP 2100 [facility] Last Admin: 11/19/18 20:16 Dose: 1 note Pregabalin (Lyrica Cap(*)) 50 mg PO TID [facility] Last Admin: 03/01/18 13:29 Dose: 50 mg Thiamine HCl (Vitamin B-1 Tab*) 100 mg PO DAILY [facility] Last Admin: 03/01/18 10:07 Dose: Not Given Vital Signs - 8 hr 03/01/18 03/01/18 03/01/18 07:40 08:00 11:10 Temperature 97.9 F Pulse Rate 62 78 Respiratory 18 18 Rate Blood Pressure 119/60 (mmHg) O2 Sat by Pulse 95 100 Oximetry 03/01/18 03/01/18 03/01/18 11:12 11:15 11:20 Temperature 97.9 F Pulse Rate 85 100 88 Respiratory 16 21 22 Rate Blood Pressure 143/91 (mmHg) O2 Sat by Pulse 97 96 95 Oximetry 03/01/18 03/01/18 03/01/18 11:22 11:25 11:26 Temperature Pulse Rate 72 69 76 Respiratory 18 Rate Blood Pressure 147/88 138/90 (mmHg) O2 Sat by Pulse 98 97 99 Oximetry 03/01/18 03/01/18 03/01/18 11:30 11:31 11:35 Temperature Pulse Rate 77 73 67 Respiratory 16 Rate Blood Pressure 127/81 (mmHg) O2 Sat by Pulse 94 91 97 Oximetry 03/01/18 03/01/18 03/01/18 11:45 11:52 12:26 Temperature 97.4 F Pulse Rate 66 82 Respiratory 16 18 Rate Blood Pressure 107/84 138/81 (mmHg) O2 Sat by Pulse 95 97 Oximetry 03/01/18 03/01/18 03/01/18 12:33 13:29 13:30 Temperature 97.4 F Pulse Rate 82 Respiratory 18 18 18 Rate Blood Pressure 138/81 (mmHg) O2 Sat by Pulse 97 Oximetry Oxygen Devices in Use Now: None Appearance: 47 yo male A+O x3 in NAD Eyes: No Scleral Icterus, PERRLA Ears/Nose/Mouth/Throat: NL Teeth, Lips, Gums, Mucous Membranes Moist Neck: NL Appearance and Movements; NL JVP Respiratory: Symmetrical Chest Expansion and Respiratory Effort Cardiovascular: NL Sounds; No Murmurs; No JVD, RRR, No Edema Skin: - - Low mid back: surgical dressing CD+I - left side of incision is mildly swollen. Neurological: Alert and Oriented x 3, NL Sensation, NL Gait, NL Muscle Strength and Tone Lines/Tubes/Other Access: Clean, Dry and Intact Peripheral IV Nutrition: Taking PO's Result Diagrams: 03/01/18 05:04 03/01/18 05:04 Assess/Plan/Problems-Billing Assessment: 47 yo male with PMH of HTN, chronic back pain with hx of lumbar lami in 2014 who was currently scheduled for back surgery on Wednesday with Dr. Slater who presented to the ER with c/o of worsening back, leg and groin pain also c/o dysuria and constipation. Also has PMH of alcohol and tobacco abuse. - Patient Problems (1) S/P lumbar discectomy Comment: POD #0 Dispo per neurosurgery Discussed with RN to monitoring dressing and wound for any changes Pain control - DC IV and fentanyl patch Bowel regimen PT/OT (2) Hyponatremia Comment: - improving with IVFs - suspect multi-factorial with dehydration, HCTZ, alcohol use (3) Constipation Comment: - had large BM 02/28. Continue bowel regimen/meds (4) Alcohol abuse Comment: - No detox symptoms - reports he has cut back the last week - will continue to monitor - continue thiamine, MVI - Patient has low motivation for cessation (5) Hypertension Comment: - Controlled - Continue amlodipine - DC HCTZ possible cause of hyponatremia (6) Patient is full code (7) DVT prophylaxis Comment: - HSQ- on hold d/t surgery Status and Disposition: inpatient. Home when medically stable -possibly tomorrow
[2018-03-01] MEDS: Acetaminophen TAB* 325 MG PO PRN (19:56)
[2018-03-01] MEDS: Nicotine Patch Removal NOTE FOLLOW UP SCH (22:09)
[2018-03-02] MEDS: HYDROcodone/ACETAMIN 5-325 MG* 1 TAB PO PRN ×2 (02:55→09:20)
[2018-03-02 06:52] LABS: ABS Basophils 0 10^3/ul (0-0.2); ABS Eosinophils 0 10^3/ul (0-0.6); ABS Lymphocytes 1.7 10^3/ul (1.0-4.8); ABS Monocytes 1.2 10^3/ul (0-0.8); ABS Neutrophils 7.5 10^3/ul (1.5-7.7); ABS Nucleated RBC 0 10^3/ul; Eosinophil % 0 % (0-6); Hematocrit 36 % (42-52); Hemoglobin 12.3 g/dl (14.0-18.0); Lymphocyte % 16.1 % (25-47); Mean Corpuscular HGB Conc 34 g/dl (31-36); Mean Corpuscular Hemoglobin 32 pg (27-31); Mean Corpuscular Volume 94 fL (80-94); Mean Platelet Volume 8.1 fL (7.4-10.4); Nucleated Red Blood Cells % 0; Platelet Count 289 10^3/ul (150-450); Red Blood Count 3.87 10^6/ul (4.00-5.40); Red Cell Distribution Width 12 % (10.5-15); White Blood Count 10.3 10^3/ul (3.5-10.8)
[2018-03-02 07:10] LABS: BUN/Creatinine Ratio 14.3 (8-20); Calcium 9.4 mg/dL (8.6-10.3); EGFR Non-African American 180.9 (>60); Potassium 3.9 mmol/L (3.5-5.0)
--- NOTE | 2018-03-02 07:31 | PN ---
Progress Note - Progress Note Date of Service: 03/02/18 SOAP: Subjective: []POD#1 Doing well Pre op leg pain relieved Objective: []Neuro intact Has ambulated,voided Assessment: []Satis post op course Plan: [] D/C today D/C Instructions given
[2018-03-02 08:43] VITALS: BP 134/73
[2018-03-02] MEDS: Nicotine PATCH 21 MG/24 HR* PATCH TRANSDERM SCH (09:15)
[2018-03-02] MEDS: Multivitamins/Minerals TAB PO SCH (09:16)
[2018-03-02] MEDS: Folic Acid TAB* 1 MG PO SCH (09:20)
[2018-03-02] MEDS: Methocarbamol TAB* 500 MG PO SCH (09:20)
[2018-03-02] MEDS: Magnesium Oxide TAB* 400 MG PO SCH (09:20)
[2018-03-02] MEDS: amLODIPine TAB* 5 MG PO SCH (09:21)
[2018-03-02] MEDS: Thiamine TAB* 100 MG TAB PO SCH (09:21)
[2018-03-02] MEDS: Pregabalin CAP(*) 50 MG PO SCH (09:21)
--- NOTE | 2018-03-03 13:58 | DS ---
CC: Dr. Jose Luque; Dr. Romel Slater* DISCHARGE SUMMARY: DATE OF ADMISSION: 02/26/18 DATE OF DISCHARGE: 03/02/18 PRIMARY CARE PROVIDER: Dr. Jose Luque. NEUROSURGEON: Dr. Romel Slater. ATTENDING PHYSICIAN: Dr. Evonne Ramos* (dictated by Teena Kilpatrick NP). PRIMARY DIAGNOSES: 1. Left-sided sciatica, status post lumbar discectomy of L4. 2. Hyponatremia. 3. Constipation. SECONDARY DIAGNOSES: 1. Alcohol abuse. 2. Hypertension. STUDIES WHILE IN THE HOSPITAL: 1. Lumbar spine x-ray on 03/01/18 reads as limited portable view of the lumbar spine for localization during spinal surgery. CONSULTATIONS WHILE IN THE HOSPITAL: 1. Dr. Slater saw the patient in consultation on 02/28/18 for left-sided radicular pain. HISTORY OF PRESENT ILLNESS AND HOSPITAL COURSE: Mr. Huff is a 47-year-old male with past medical history of hypertension and chronic back pain, who presented to the emergency room on 02/26/18 with complaints of left leg sciatica. Please see the history and physical by Dr. Hernandez for complete summary of the events leading up to this hospitalization. In short, the patient was perviously hospitalized from 02/20/18 to 02/22/18 for intractable back pain. He followed up with Dr. Slater and the plan was for laminectomy on L2 through L5 on 03/01/18. The patient was not able to manage his pain at home and presented to the emergency room. The patient was admitted by the hospitalist service. Dr. Slater was consulted and the plan was made to manage the patient's pain in anticipation for surgery on 03/01/18. He was given a bowel regimen to counteract his opioid-induced constipation. He was noted to be hyponatremic and it was thought that this was likely due to his hydrochlorothiazide, so that was held. Ultimately, the patient had surgery as scheduled, which he tolerated well. He was monitored for alcohol withdrawal, but did not display any symptoms of withdrawal. His hypertension was well managed. Hyponatremia continued to improve and as of the day of discharge, sodium was up to 132 compared to the day of admission, which was 124. As of today, the patient reports feeling well. He has been up and ambulatory without difficulty. He has a surgical dressing to his lumbar spine, which is clean, dry, and intact. There is some edema localized around the dressing, of which Neurosurgery is aware. He has no neurological deficits and is anxious to return home. I will note that according to the history and physical, the patient was taking amlodipine, folic acid, hydrochlorothiazide, and thiamine prior to admission, although the patient denies this and reports that he was only taking pain medication, so it is unclear as to why he was not taking these medications or when they were previously prescribed. Mr. Huff is stable for discharge today. Vital signs are as follows: temp 97.4, heart rate 68, respiratory rate 14, oxygen saturation 100 percent on room air, blood pressure 134/73. DISCHARGE MEDICATIONS: [place] Medications: 1. Hydrocodone/acetaminophen 5/325 mg 1 to 2 tabs p.o. q.4 hours p.r.n. pain. 2. Amlodipine 5 mg p.o. daily. Continued medications: 1. Acetaminophen 650 mg p.o. q.4 hours p.r.n. 2. Methocarbamol 500 mg p.o. b.i.d. 3. Multivitamin 1 tab p.o. daily. Discontinued Home Medications: 1. Hydrochlorothiazide. 2. Folic acid. 3. Thiamine. DISCHARGE PLAN: Mr. Huff will be discharged to home. Activity per Neurosurgery is: no driving, no lifting heavier than a coffee cup, no prolonged sitting, recliner is okay, walking in stairs are okay. If activity causes pain , stop. Diet will be regular as tolerated. Medications are noted above. The patient has been prescribed [place] by Neurosurgery to manage his pain. He can continue to use his previously prescribed muscle relaxers as needed. I have additionally sent a new prescription for amlodipine as the patient states he has not been taking this and does not have any at home. Again, it is unclear why the hydrochlorothiazide was listed on his home medications on admission, although he should not be taking that at this point due to his hyponatremia. Wound care as per Neurosurgery is: may shower, replace dressing after shower, may discontinue dressing on 03/04/18, no soaking in bathtub, hot tub, etc. The patient has been instructed to return to the emergency room or nearest hospital for any worsening of symptoms, shortness of breath, lightheadedness, dizziness, chest discomfort, high fevers, chills, night sweats, loss of consciousness, or any worrisome signs or symptoms. This is a summarized report of a complex medical history and hospital stay. For further details, please see the entire medical record. TIME SPENT: Approximately 40 minutes was spent on this discharge, greater than half of that time spent [id number] with the patient and his son discussing discharged plans and instructions. TEENA KILPATRICK, BROKE BEATER [id number]/[facility] #: [id number] NATI
--- NOTE | 2018-03-29 14:57 | OP ---
DATE OF OPERATION: 03/01/18 - ROOM #339 DATE OF : 66 PRIMARY SURGEON: Romel Slater MD EMERGENCY MANAGEMENT COORDINATOR: MARILYN Torrez ANESTHESIA: General. PRE-OP DIAGNOSIS: Herniated nucleus pulposus, L3-4 on the left. POST-OP DIAGNOSIS: Herniated nucleus pulposus, L3-4 on the left. OPERATIVE PROCEDURE: Lumbar diskectomy L3-4 on the left with microdissection. DESCRIPTION OF PROCEDURE: After satisfactory general anesthesia was obtained, the patient was placed on the operating room table in a prone position with the chest supported on Xu frame with the back slightly flexed. The lumbar region was then clipped, prepped and draped in usual sterile manner for lumbar laminectomy. The skin incision outlined from L3-L4. This incision was infiltrated with 1% Xylocaine with epinephrine after which it was turned in sharply to the level of the lumbar fascia. The fascia was divided along the spinous processes of L3 and L4 and the paraspinal musculature was stripped away from these posterior elements using the periosteal elevator and monopolar cautery. An intraoperative x-ray was obtained verifying proper interspace localization after which a partial hemilaminectomy was carried out at this level by removing the inferior aspect of the L3 lamina and medial aspect of the facet complex utilizing a combination of the Midas Seb drill and Kerrison rongeurs. Additional inferior exposure was obtained as preoperative x-rays had suggested the inferior migration of an business office representative disk fragment. After removing the ligamentum flavum, the operating microscope was brought into the field and the remaining of the procedure done under microscopic visualization. Utilizing microdissection, epidural venous structures were coagulated and then divided. A projecting into the axillary region of the exposure was extruded disk fragment, which was removed. The opening in the disk space itself was then enlarged and the disk space cleared of any loose disk material using pituitary forceps and curettes. At the conclusion of the decompression, the L4 nerve root was noted to be in its course. After assuring adequate hemostasis, the wound was thoroughly irrigated, after which a piece of Gelfoam was placed over the laminectomy defect. The fascia was then reapproximated with 0 Vicryl suture and the subcutaneous tissues closed with 3- 0 Vicryl suture and the skin was closed with skin clips. The estimated blood loss was less than 50 cc and the final sponge, padding, and needle counts were correct. The patient was taken to the recovery room, extubated and in stable condition. [id number]/[facility] [place] #: [id number] [facility]
== END 2018-03-02 10:05 | disposition home or self-care (01) | DRG 310 ==
LOC: ED 00:30 → SSU 02:12
PROVIDERS: ADMIT Internal Medicine; ATTEND Hospitalist
PROC: 01NB0ZZ Release Lumbar Nerve, Open Approach (ICD-10-PCS; principal; 2018-02-26)
PROC: 0SB20ZZ Excision of Lumbar Vertebral Disc, Open Approach (ICD-10-PCS; 2018-02-26)
DX: M51.16 Intervertebral disc disorders with radiculopathy, lumbar region (principal); E87.1 Hypo-osmolality and hyponatremia; I10 Essential (primary) hypertension; G89.29 Other chronic pain; F17.210 Nicotine dependence, cigarettes, uncomplicated; M19.90 Unspecified osteoarthritis, unspecified site; F10.10 Alcohol abuse, uncomplicated; K59.03 Drug induced constipation; T40.2X5A Adverse effect of other opioids, initial encounter; Y92.9 Unspecified place or not applicable; Z72.89 Other problems related to lifestyle; Z23 Encounter for immunization
CPT/HCPCS: 36415; 72100; 80048; 80307; 80320; 81003; 82570; 82977; 83036; 83735; 83935; 84300; 84450; 84460; 85025; 85610; 85730; 90686; 93005; 99285; A9270-GY; G0480; J0690; J1170; J1644; J2250; J2270; J2704; J3010

== ENCOUNTER 2021-06-13 22:34 | Inpatient (IN) ==
[2021-06-13 23:24] LABS: ABS Eosinophils 0.1 10^3/ul (0-0.6); ABS Lymphocytes 1.6 10^3/ul (1.0-4.8); ABS Monocytes 0.3 10^3/ul (0-0.8); ABS Neutrophils 1.4 10^3/ul (1.5-7.7); Eosinophil % 1.6 %; Hematocrit 35 % (42-52); Hemoglobin 12.3 g/dL (14.0-18.0); Mean Corpuscular HGB Conc 36 g/dL (31-36); Mean Corpuscular Hemoglobin 33 pg (27-31); Mean Corpuscular Volume 93 fL (80-94); Mean Platelet Volume 7.7 fL (7.4-10.4); Nucleated Red Blood Cells % 0.1; Platelet Count 163 10^3/uL (150-450); Red Blood Count 3.71 10^6 /uL (4.18-5.48); Red Cell Distribution Width 13 % (10-15); White Blood Count 3.3 10^3/uL (3.5-10.8)
[2021-06-13 23:29] LABS: INR 1.03 (0.86-1.15)
[2021-06-14 00:02] LABS: Albumin 3.9 g/dL (3.2-5.2); Albumin/Globulin Ratio 1.2 (1-3); Calcium 8.7 mg/dL (8.6-10.3); Globulin 3.2 g/dL (2-4); Total Bilirubin 0.5 mg/dL (0.2-1.0); Total Protein 7.1 g/dL (6.4-8.9)
[2021-06-14 00:06] LABS: Potassium 2.4 mmol/L (3.5-5.0)
[2021-06-14] MEDS ORDERED: Potassium Chlor 20 meq TAB.ER PO ONE ×4 (00:06→20:21)
[2021-06-14] MEDS: KCL 10 MEQ/50 ML IVPREMIX 10 MEQ/50 ML BAG IV SCH ×3 (00:14→03:00)
[2021-06-14 00:21] LABS: Urine Potassium Concentration 8.7 mmol/L
[2021-06-14 00:25] LABS: Urine Appearance Clear; Urine Bilirubin Negative (Negative); Urine Blood Negative (Negative); Urine Color Yellow; Urine Glucose Negative (Negative); Urine Ketones Negative (Negative); Urine Nitrite Negative (Negative); Urine Protein Negative (Negative); Urine Specific Gravity 1.002 (1.002-1.030); Urine Urobilinogen Negative (Negative)
[2021-06-14 00:38] LABS: Phosphorus 3.7 mg/dL (2.5-5.0)
[2021-06-14 01:14] LABS: Urine Osmo 135 mOsm/kg (150-1150)
[2021-06-14 01:16] LABS: Osmolality Serum 281 mOsm/kg (275-295)
[2021-06-14 06:27] LABS: ABS Monocytes 0.3 10^3/ul (0-0.8); ABS Neutrophils 2.3 10^3/ul (1.5-7.7); Eosinophil % 1.3 %; Hematocrit 36 % (42-52); Lymphocyte % 27.4 %; Mean Corpuscular HGB Conc 36 g/dL (31-36); Mean Corpuscular Hemoglobin 34 pg (27-31); Mean Corpuscular Volume 93 fL (80-94); Mean Platelet Volume 8.1 fL (7.4-10.4); Nucleated Red Blood Cells % 0.2; Platelet Count 162 10^3/uL (150-450); Red Blood Count 3.84 10^6 /uL (4.18-5.48); Red Cell Distribution Width 13 % (10-15); White Blood Count 3.6 10^3/uL (3.5-10.8)
[2021-06-14 06:40] LABS: Potassium 2.9 mmol/L (3.5-5.0)
[2021-06-14] MEDS: KCL 20 MEQ/100 ML IVPREMIX 20 MEQ/100 ML BAG IV SCH ×2 (09:26→12:36)
[2021-06-14 19:39] LABS: Potassium 3.3 mmol/L (3.5-5.0)
[2021-06-14] MEDS ORDERED: NS 0.9% 500 ml BAG 500 ML IV ONE (20:21)
[2021-06-15 06:54] LABS: ABS Basophils 0.1 10^3/ul (0-0.2); ABS Lymphocytes 1.8 10^3/ul (1.0-4.8); ABS Monocytes 0.4 10^3/ul (0-0.8); ABS Neutrophils 1.9 10^3/ul (1.5-7.7); Eosinophil % 1.1 %; Hematocrit 37 % (42-52); Hemoglobin 12.9 g/dL (14.0-18.0); Lymphocyte % 42.2 %; Mean Corpuscular HGB Conc 35 g/dL (31-36); Mean Corpuscular Hemoglobin 34 pg (27-31); Mean Corpuscular Volume 96 fL (80-94); Platelet Count 165 10^3/uL (150-450); Red Blood Count 3.84 10^6 /uL (4.18-5.48); Red Cell Distribution Width 13 % (10-15); White Blood Count 4.2 10^3/uL (3.5-10.8)
[2021-06-15 07:46] LABS: Calcium 9.1 mg/dL (8.6-10.3); Potassium 3.7 mmol/L (3.5-5.0); eGFR CKD-EPI 117.3 (>60)
[2021-06-15 07:50] VITALS: BP 136/76
== END 2021-06-15 10:40 | disposition left against medical advice (07) | DRG 425 ==
LOC: ED 22:34 → SUATTDRO 06-14 01:36 → EDHOLD 06-14 01:36 → MEDTELE 06-14 03:43
PROVIDERS: ADMIT Hospitalist; ATTEND Internal Medicine